=== PATIENT | female | born 1960 | race Hispanic/Latino ===

== ENCOUNTER 2017-01-18 07:10 | Emergency (ER) | payer SELFPAY ==
[2017-01-18 07:10] VITALS: BMI 35.5
[2017-01-18] MEDS ORDERED: Albuterol-Ipratrop 3 mg / 0.5 (3 ml) UD INH STA (07:33)
[2017-01-18] MEDS ORDERED: guaiFENesin 100 mg/5 ml Syrup UD PO STA (07:33)
[2017-01-18] MEDS ORDERED: guaiFENesin 100 mg/5 ml Syrup UD ONE (07:50)
[2017-01-18] MEDS ORDERED: Albuterol-Ipratrop 3 mg / 0.5 (3 ml) UD ONE (07:50)
--- NOTE | 2017-01-18 08:14 | ED PDOC ---
HPI: CCC, URI, Sore Throat Time Seen by Provider: 01/18/17 07:16 Chief Complaint (Nursing): Cough, Cold, Congestion Chief Complaint (Provider): Cough History Per: Patient History/Exam Limitations: no limitations Onset/Duration Of Symptoms: Days (x2) Current Symptoms Are (Timing): Still Present Sick Contacts (Context): Individual(s) At Work (hospital employee) Associated Symptoms: Fever, Cough Ear Symptoms: Bilateral: None Pain Scale Rating Of: 7 Additional Complaint(s): Kelley Contreras is a 56 year old female, with no past medical history, who presents to the emergency department complaining of cough associated with malaise and headache onset for 2 days. Patient reports chest wall pain with cough and states that she had fever this morning. She denies any hemoptysis, syncope, or edema. Patient is a hospital employee. No further medical complaints. PMD: None provided. Past Medical History Reviewed: Historical Data, Nursing Documentation, Vital Signs Vital Signs: Last Vital Signs Temp 100.4 F H 01/18/17 07:13 Pulse 121 H 01/18/17 07:13 Resp 22 01/18/17 07:13 BP 144/79 01/18/17 07:13 Pulse Ox 99 01/18/17 08:31 - Family History Family History: States: Unknown Family Hx - Social History Current smoker - smoking cessation education provided: No Alcohol: None Drugs: Denies - Allergies Allergies/Adverse Reactions: Allergies Allergy/AdvReac Type Severity Reaction Status Date / Time ciprofloxacin [From Cipro] Allergy RASH Verified 01/03/17 08:45 codeine Allergy RASH Verified 01/03/17 08:45 Review of Systems ROS Statement: Except As Marked, All Systems Reviewed And Found Negative Constitutional: Positive for: Fever, Malaise Cardiovascular: Positive for: Other (chest wall pain with cough). Negative for : Edema Respiratory: Positive for: Cough. Negative for: Hemoptysis Neurological: Positive for: Headache. Negative for: Other (syncope) Physical Exam - Reviewed Nursing Documentation Reviewed: Yes Vital Signs Reviewed: Yes - Physical Exam Appears: Positive for: Well, Non-toxic, No Acute Distress Head Exam: Positive for: ATRAUMATIC, NORMAL INSPECTION, NORMOCEPHALIC Skin: Positive for: Normal Color, Warm, Dry Eye Exam: Positive for: EOMI, Normal appearance, PERRL Neck: Positive for: Normal, Painless ROM, Supple Cardiovascular/Chest: Positive for: Regular Rate, Rhythm. Negative for: Murmur Respiratory: Negative for: Normal Breath Sounds (Coarse bilaterally), Respiratory Distress Gastrointestinal/Abdominal: Positive for: Normal Exam, Bowel Sounds, Soft. Negative for: Tenderness, Guarding, Rebound Back: Positive for: Normal Inspection. Negative for: L CVA Tenderness, R CVA Tenderness Extremity: Positive for: Normal ROM. Negative for: Pedal Edema, Deformity, Swelling Neurologic/Psych: Positive for: Alert, Oriented - Laboratory Results Result Diagrams: 01/18/17 08:10 01/18/17 08:10 - ECG O2 Sat by Pulse Oximetry: 99 (RA) Pulse Ox Interpretation: Normal Medical Decision Making Medical Decision Making: Initial Impression: cough Initial Plan: --Venous Blood Gas Shock Panel --Comp Metabolic Panel --CBC w/ differential --Chest two views (PA/LAT) [RAD] --Tylenol 650 mg PO --Duoneb 3 ml INH --Robitussin 100 mg PO --SOLU-medrol 125 mg IVP --Blood culture --Peak flow pre/post Tx --Influenza A B --reevaluation 0934 chest x-ray FINDINGS: LINES AND TUBES: None. LUNG AND PLEURA: The lungs are well inflated and clear. HEART AND MEDIASTINUM: The heart is not enlarged. The hilar and mediastinal contours are within normal limits. SKELETAL STRUCTURES: The bony structures are within normal limits for the patient's age. VISUALIZED UPPER ABDOMEN: Normal. OTHER FINDINGS: None. IMPRESSION: No active pulmonary disease. Scribe Attestation: Documented by Sahil Guerra, acting as a scribe for Josue Nowak MD Provider Scribe Attestation: All medical record entries made by the Scribe were at my direction and personally dictated by me. I have reviewed the chart and agree that the record accurately reflects my personal performance of the history, physical exam, medical decision making, and the department course for this patient. I have also personally directed, reviewed, and agree with the discharge instructions and disposition. Disposition - Disposition Forms: Zeb[employer] (Lithuanian)
[2017-01-18 08:23] LABS: BASO % 0.3 % (0.0-2.0); EOS # 0.1 K/uL (0.0-0.7); EOS % 1.8 % (0.0-4.0); HEMATOCRIT 40.6 % (34.0-47.0); LYMPH # 0.9 K/uL (1.0-4.3); LYMPH % 12.1 % (20.0-40.0); MEAN CELL VOLUME 88.1 fl (81.0-99.0); MEAN CORPUSCULAR HEMOGLOBIN 29.9 pg (27.0-31.0); MEAN PLATELET VOLUME 6.8 fl (7.2-11.7); MONO # 0.8 K/uL (0.0-0.8); MONO % 10.3 % (0.0-10.0); NEUT # 5.5 K/uL (1.8-7.0); NEUT % 75.5 % (50.0-75.0); NRBC % 0.2 % (0.0-0.0); WHITE BLOOD COUNT 7.3 K/uL (4.8-10.8)
[2017-01-18 08:42] LABS: ALB/GLOB RATIO 1.2 (1.0-2.1); ALKALINE PHOSPHATASE 114 U/L (38-126); ALT/SGPT 37 U/L (9-52); AST/SGOT 32 U/L (14-36); BILIRUBIN,TOTAL 0.4 mg/dl (0.2-1.3); BLOOD UREA NITROGEN 15 mg/dl (7-17); CALCIUM 9.2 mg/dL (8.4-10.2); CARBON DIOXIDE 26 mmol/L (22-30); CHLORIDE 104 mmol/L (98-107); GFR AFRICAN-AMERICAN > 60; GLUCOSE,RANDOM 102 mg/dL (65-105); POTASSIUM 3.8 MMOL/L (3.6-5.0); SODIUM 141 mmol/l (132-148)
[2017-01-18 08:55] LABS: VENOUS BLOOD GAS PCO2 44 mmHg (40-60)
--- NOTE | 2017-01-18 09:36 | RAD ---
HISTORY: COMPARISON: 05/11/2010 TECHNIQUE: Chest PA and lateral FINDINGS: LINES AND TUBES: None. LUNG AND PLEURA: The lungs are well inflated and clear. HEART AND MEDIASTINUM: The heart is not enlarged. The hilar and mediastinal contours are within normal limits. SKELETAL STRUCTURES: The bony structures are within normal limits for the patient's age. VISUALIZED UPPER ABDOMEN: Normal. OTHER FINDINGS: None. IMPRESSION: No active pulmonary disease.
[2017-01-18 11:33] VITALS: BP 111/78; PULSE 94; RESP 19; TEMP 99; O2SAT 98
== END 2017-01-18 11:43 | disposition home or self-care (01) ==
LOC: H.ER 07:10
DX: R05 Cough (principal); R50.9 Fever, unspecified
CPT/HCPCS: 71020; 80053; 82803; 85025; 87040; 87804; 96374; 99283; J2930

== ENCOUNTER 2017-11-22 05:53 | Day surgery (SDC) | payer OTHER ==
[2017-11-12 09:09] VITALS: BMI 35.2
[2017-11-13 08:52] VITALS: RESP 20
[2017-11-22] MEDS ORDERED: Bupivacaine 0.5% Inj(30mL) IJ ONE (06:48)
[2017-11-22] MEDS ORDERED: Lidocaine 1% Inj (20ml) IJ ONE (06:48)
--- NOTE | 2017-11-22 06:52 | CP.SDSHP ---
Same Day Surgery H & P - History Proposed Procedure: L eft foot Nadja Osteotomy with plantar plate repair, repair of 2nd digit hammer toe Pre-Op Diagnosis: HammerToe of 2nd digit with plantar plate tear - Previous Medical/Surgical History Pain: 4.Moderate Pain - Allergies Allergies: Allergies ciprofloxacin [From Cipro] Allergy (Verified 01/03/17 08:45) RASH codeine Allergy (Verified 01/03/17 08:45) RASH - Physical Exam Vital Signs: Vital Signs 11/22/17 11/22/17 06:29 06:32 Temperature 99.2 F Pulse Rate 83 83 Respiratory 20 Rate Blood Pressure 149/91 H O2 Sat by Pulse 100 Oximetry Mental Status: Alert & Oriented x3 Neuro: WNL - {Optional Preform as Required} Integument: WNL - Impression Pt. Evaluated Today:Candidate for Anesthesia & Procedure: Yes - Date & Time Date: 11/22/17 Time: 06:52 Short Stay Discharge - Short Stay Discharge Admitting Diagnosis/Reason for Visit: M20.41/M25.74/M77.571 Disposition: HOME/ ROUTINE Referrals: FAMILY PROVIDER,NO [Primary Care Provider] - Additional Instructions (Diet, Activity): -Patient in good/stable condition for discharge home -Pt to resume medications per medical reconciliation -Resume regular diet Please keep dressing clean, dry, & intact to surgical site -Use plastic bag over bandage for showering -Wear post op shoe at all times when ambulating -Call clinic if you see signs of infection (redness, swelling, malodor) -Please make an appointment to see Dr. Cruz in office/clinic within 1 week for post-op check Progress Note/Discharge Note with Instructions: - Patient evaluated bedside in recovery s/p surgical procedure. - After surgical procedure patient in NAD - (+) Void, (+) Appetite - Capillary refill time <3s and NVSI intact. - Patient denies complaints at this time - Post operative instructions and plan of care explained to patient at length. - Pt. acknowledges understanding. - Patient stable for DC per podiatric surgery
[2017-11-22] MEDS ORDERED: ceFAZolin IV 1 gm in Dextrose 1 GM/50 ML BAG IVPB ONE (07:00)
[2017-11-22] MEDS ORDERED: Sodium Chloride 0.9% 1,000 ML IV SCH (07:00)
[2017-11-22] MEDS ORDERED: Midazolam 2 MG/2 ML VIAL ONE (07:08)
[2017-11-22] MEDS ORDERED: Propofol 10 mg/ml Inj (20 ML) ONE ×2 (07:08→11:00)
--- NOTE | 2017-11-22 07:14 | CP.PCM.PN ---
Subjective - Date & Time of Evaluation Date of Evaluation: 11/22/17 Time of Evaluation: 06:52 - Subjective Subjective: Podiatry progress note for Dr. Cruz 57 y/o female with no significant past medical history was seen and evaluated at bedside in [facility] for surgery to her left foot. Patient states she came to the clinic due to complaints of pain to her 2nd digit at the PIPJ and plantarly, worsened with ambulation. Patient states she last ate or drank at 10 PM last night. Patient denies any reactions to sugeries in the past. Patient denies any F/N/V/SOB/chills. PMHx: denies PSHx: C-sections, Tonsillectomy, Hemangioma removal Medications: Naprosyn for left foot pain Allergies: Codeine, Ciprofloxacin, Social History: drinks occasionally, denies tobacco and drug use Objective - Vital Signs/Intake and Output Vital Signs (last 24 hours): Temp Pulse Resp BP Pulse Ox 99.2 F 83 20 149/91 H 100 11/22/17 06:29 11/22/17 06:32 11/22/17 06:29 11/22/17 06:29 11/22/17 06:29 - Medications Medications: Current Medications Bupivacaine HCl (Marcaine 0.5%) 20 ml IJ ONCE ONE Stop: 11/22/17 06:49 Cefazolin Sodium 1 gm/ Sodium (Chloride) 100 mls @ 100 mls/hr IVPB ONCE ONE PRN Reason: Protocol Stop: 11/22/17 07:47 Sodium Chloride (Sodium Chloride 0.9%) 1,000 mls @ 20 mls/hr IV .Q24H [facility] Stop: 11/23/17 06:49 Lidocaine HCl (Lidocaine 1% (20ml)) 20 ml IJ ONCE ONE Stop: 11/22/17 06:49 - Constitutional Appears: Well, Non-toxic, No Acute Distress - Head Exam Head Exam: ATRAUMATIC, NORMOCEPHALIC - Extremities Exam Additional comments: Vasc: DP-2/4 b/l, PT-1/4 b/l, CFT < 3 seconds x10, TG warm to cool, pedal hair present, no edema, no erythema, no varacosities. Derm: Hyperkeratotic lesion dorsal PIPJ on second digit b/l, hyperkeratotic lesion submet 2 b/l, No IDM, no open lesions, no clinical signs of infection. Neuro: Protective sensation intact 4/4 via [place] examination b/l. Ortho: HAV b/l, hammered second digits b/l (L>R)- left is rigid and right is semi-rigid base on Kellikian push up test.,Pain on palpation submet 2 on the left and near the head of the second met b/l. - Neurological Exam Neurological Exam: Alert, Awake, Oriented x3 - Psychiatric Exam Psychiatric exam: Normal Affect, Normal Mood Assessment and Plan - Assessment and Plan (Free Text) Assessment: 57 yo female seen and evaluated in [facility] for left foot hammertoe and plantar plate repair. Plan: Pt was seen and examined in [facility] Pt NPO status was confirmed All pre-op testing and clearance in chart Pt has exhausted all conservative treatment at this time and is opting for surgical intervention Pt was explained procedure and post-operative course All pt's questions were answered to satisfaction No guarantees were made Pt understands all risks, benefits and complications of procedure Pt will follow-up with Dr. Cruz in podiatry clinic within 1 week of surgery
[2017-11-22] MEDS ORDERED: ceFAZolin IV 2 gm in Dextrose 2 GM/50 ML BAG IVPB ONE (07:41)
[2017-11-22] MEDS ORDERED: Bupivacaine HCl 0.5% PF (30 ml) Inj ONE (07:41)
[2017-11-22] MEDS ORDERED: Lidocaine 2% MPF (5 ml) Inj ONE (07:41)
[2017-11-22] MEDS ORDERED: Lactated Ringer's 1,000 ML IV ONE ×2 (10:00→12:50)
[2017-11-22] MEDS ORDERED: Rocuronium 10 mg/ml (5 ml) ONE (11:00)
[2017-11-22] MEDS ORDERED: Succinylcholine 200 mg/10 ml Inj IV ONE (11:00)
--- NOTE | 2017-11-22 13:14 | PCM.SURG1 ---
Surgeon's Initial Post Op Note - Surgeon's Notes Surgeon: Dr. Cruz, DPM [employer] Machine Operator: Dr. Elly Villa PGY3, Dr. Lindsay Jade PGY3 Type of Anesthesia: IV Sedation, Local Anesthesia Administered By: Dr. Hamilton Pre-Operative Diagnosis: Left foot 2nd digit hammertoe with plantar plate rupture Operative Findings: see dictation. I: 20 cc 1:1 mixture of 2% Lidocaine plain and 0.5% Marcaine plain. M: 4-0 Vicryl, 4-0 monocryl, 4-0 Nylon, 2-0 Vicryl, Arthrex Tigerwire and Fibertape Post-Operative Diagnosis: same Operation Performed: Left foot 2nd digit arthroplasty and resection of the 2nd metatarsal head, repair of the plantar plate Specimen/Specimens Removed: none Estimated Blood Loss: EBL {In ML}: 1 Blood Products Given: N/A Drains Used: No Drains Post-Op Condition: Good Date of Surgery/Procedure: 11/22/17 Time of Surgery/Procedure: 13:15
[2017-11-22] MEDS ORDERED: HYDROmorphone 0.5 mg/0.5 ml ISec IVP PRN (13:15)
[2017-11-22 14:17] VITALS: BP 134/77; PULSE 74; TEMP 98.1; O2SAT 99
--- NOTE | 2017-11-22 14:23 | RAD ---
Date of service: 11/22/2017 PROCEDURE: Left Foot Radiographs. HISTORY: left foot surgery COMPARISON: 10/21/2017 FINDINGS: BONES: Postoperative findings, prior osteotomy 2nd metatarsal phalangeal junction and proximal interphalangeal joint. JOINTS: Hammertoe deformities remain unaffected digits. SOFT TISSUES: Postoperative soft tissue swelling identified best seen on the lateral view. OTHER FINDINGS: None. IMPRESSION: Satisfactory postoperative status.
--- NOTE | 2017-11-27 08:25 | OP ---
PROCEDURE DATE: 11/22/2017 SURGEON: Lindsay Cruz DPM STAND IN: Elly Villa, PGY-3, Dr. Salazar, PGY-3. ANESTHESIOLOGIST: Dr. Hamilton. ANESTHESIA: IV sedation with local. PREOPERATIVE DIAGNOSIS: Left foot second digit hammertoe deformity with rupture of plantar plate. POSTOPERATIVE DIAGNOSIS: Left foot second digit hammertoe deformity with rupture of plantar plate. PROCEDURES PERFORMED: 1. Left foot arthroplasty of proximal interphalangeal joint of the second digit. 2. Left foot partial second metatarsal head resection. 3. Left foot surgical repair of second metatarsophalangeal joint plantar plate rupture. INDICATIONS: The patient is a 57-year-old female with the above mentioned diagnosis. The patient has exhausted multiple forms of conservative treatment at this time and now request surgical intervention. The patient signed the consent after careful explanation of risks, benefits, complications and alternatives for surgical procedure. No guarantees were given nor implied. The n.p.o. status was confirmed prior to bringing the patient into the operating room. PREPARATION: The patient was brought into the operating room and placed on the operating room table in a supine position. A time-out was performed for identification of the correct patient and procedure. A well-padded pneumatic ankle tourniquet was placed to the patient's left ankle. After induction of IV sedation, the patient received a total of 20 mL of a 1:1 mixture of 0.5% Marcaine plain and 2% lidocaine plain in a local block type fashion to the left foot. Once the local anesthesia was achieved, the left foot was then prepped and draped in normal sterile manner. The tourniquet was inflated to 250 mmHg and the procedure began. DESCRIPTION OF PROCEDURE: 1. Left foot second digit proximal interphalangeal joint arthroplasty: Attention was directed to the second digit of the left foot where a 2 cm semi elliptical incision was made over the dorsum of the proximal interphalangeal joint. Sharp dissection was carried down through deep tissue with care being taken to identify and retract all vital neurovascular structures. All bleeders were cauterized and ligated as necessary. At this time, a transverse tenotomy and capsulotomy was performed to the proximal interphalangeal joint and the head of the proximal phalanx was then freed of its capsular and ligamentous attachments. Next, utilizing the sagittal bone saw, the head of the proximal phalanx was resected and passed from the operative field. Correction of the deformity was assessed at this time and noted to be excellent. The wound was then flushed with copious amounts of normal sterile saline and the subcutaneous tissue was reapproximated with 4-0 Vicryl and the subcuticular layer and the skin was reapproximated with 4-0 Monocryl and 4-0 nylon. 2. Left foot second metatarsal head resection: Attention was then drawn to the second metatarsophalangeal joint where a 3 cm curved, semi circular incision was created at the level of the second metatarsophalangeal joint of the left foot. It was to avoid postoperative contracture overlying the second metatarsophalangeal joint and for minimal scar formation clinically. The incision was then carried down through the deeper plane with care being taken to identify and retract all vital and neurovascular structures. All bleeders were cauterized and ligated as necessary. The incision was then deepened down to the level of the long extensor tendon and the long extensor tendon was then identified and retracted laterally. Attention was then drawn to the capsular and periosteal tissue. A sharp periosteal and capsular incision was created being careful not to score the articular cartilage of the second metatarsal head. Periosteal tissue was reflected from this area to expose the head and neck of the second metatarsophalangeal joint. Using a Ruiz elevator, the plantar capsule was released off the head of the second metatarsal. Upon this maneuver, the articular cartilage of the head was kept nonviable. With the use of a sagittal saw, the distal aspect of the metatarsal head was resected and passed off the operative field. The incision site was then copiously irrigated with sterile normal saline. 3. Left foot repair of the second metatarsophalangeal joint and plantar plate rupture: Next, via the same incision at the level of the second metatarsophalangeal joint, the medial and collateral ligaments were then released off of the base of the proximal phalanx using a #15 blade. A 0.062 inch K-wire was then driven from dorsal to plantar, at the base of the proximal phalanx and at the neck of the second metatarsal. Next, a distractor was placed over the K-wire to allow for visualization and exposure of the plantar plate. Upon inspection of the plantar plate apparatus, it was noted to be free and completely ruptured. Using a #15 blade, the remaining plantar plate was transected off of the base of the proximal phalanx with care being taken to avoid the flexor tendon. Next, utilizing the Arthrex ____0_ FiberWire was passed on the medial aspect of the plantar plate with the pigtail technique and SutureLasso and another 0 FiberWire was passed to the lateral aspect of the plantar plate with the same SutureLasso pigtail technique. Next, two drill holes using 0.062 inch K-wire was drilled into the base of the proximal phalanx, one medial and one lateral to allow for the FiberWire to pass through. Using the SutureLasso, each end of FiberWire was passed through the bone tunnel and the proximal phalanx. Using a _suture lasso____, the FiberWire was then sent down at the dorsal aspect of the proximal phalanx by holding the digit in a plantar flexed position against the metatarsal head. The correction of the deformity was assessed at this time and noted to be excellent. The incision site was then copiously irrigated with sterile normal saline. Subcutaneous tissue was reapproximated with 3-0 and 4-0 Vicryl and the subcuticular tissue was reapproximated with 4-0 Monocryl and the skin was reapproximated with 4-0 Nylon. Postoperative dressing included Steri-Strips, Adaptic, 4x4, gauze, Cata, and Andrzej. POSTOPERATIVE CONDITION: The patient tolerated the anesthesia and the procedure well and was escorted to the recovery room with vital signs stable and neurovascular status intact to the left lower extremity. The patient will follow up with Dr. Cruz in her office on an outpatient basis. Elly Villa DPM Lindsay Cruz DPM [facility]
== END 2017-11-22 16:00 | disposition home or self-care (01) ==
LOC: H.OPSURG 05:53
PROVIDERS: ATTEND Podiatrist Primary Podiatric Medicine
DX: M20.42 Other hammer toe(s) (acquired), left foot (principal); E66.9 Obesity, unspecified
CPT/HCPCS: 28173; 28285; 73630; 97116; 97161; C1713; G8978; G8979; G8980; J0330; J0690; J2001; J2250; J2704; J3010; J7030; J7120

== ENCOUNTER 2018-02-02 13:32 | Emergency (ER) | payer OTHER ==
[2018-02-02 13:33] VITALS: BMI 35.2
[2018-02-02 13:39] VITALS: BP 149/86; RESP 18; TEMP 97.8; O2SAT 99
[2018-02-02 13:53] VITALS: PULSE 78
--- NOTE | 2018-02-02 14:17 | ED PDOC ---
HPI: Skin/Bite Injury Time Seen by Provider: 02/02/18 13:50 Chief Complaint (Nursing): Abnormal Skin Integrity Chief Complaint (Provider): Abnormal Skin Integrity History Per: Patient History/Exam Limitations: no limitations Onset/Duration Of Symptoms: Days (x2) Current Symptoms Are (Timing): Still Present Additional Complaint(s): 57 year old female, [employer] employee with no significant pmHx, presents to ED with a complaint of left-sided facial swelling with minimal discomfort since yesterday. She denies any pain to affected area, barak toothache, fever, chills, sore throat, difficulty swallowing, or ear pain bilaterally. Patient reports taking Naproxen this morning with decrease in swelling today but continues to have persistent discomfort. Patient went to work but referred to ED for further evaluation by coworkers. She additionally states that she has not been evaluated by a dentist in 4 years. PCP: none provided Past Medical History Reviewed: Historical Data, Nursing Documentation, Vital Signs Vital Signs: Last Vital Signs Temp 97.8 F 02/02/18 13:36 Pulse 78 02/02/18 13:36 Resp 18 02/02/18 13:36 BP 149/86 02/02/18 13:36 Pulse Ox 99 02/02/18 13:36 - Medical History PMH: Arthritis (hands) Denies: Chronic Kidney Disease - Family History Family History: States: Unknown Family Hx - Home Medications Home Medications: Ambulatory Orders Medication Instructions Recorded Naproxen 500 mg PO BID PRN 11/22/17 traMADol [Ultram] 50 mg PO Q4 PRN 11/22/17 Penicillin VK [Penicillin VK Tab] 500 mg PO Q6 7 Days tab 02/02/18 - Allergies Allergies/Adverse Reactions: Allergies Allergy/AdvReac Type Severity Reaction Status Date / Time ciprofloxacin [From Cipro] Allergy RASH Verified 01/03/17 08:45 codeine Allergy RASH Verified 01/03/17 08:45 Review of Systems ROS Statement: Except As Marked, All Systems Reviewed And Found Negative Constitutional: Negative for: Fever, Chills ENT: Positive for: Mouth Swelling (left-sided with minimal discomfort). Negative for: Ear Pain (bilaterally), Mouth Pain (or barak toothache), Throat Pain (or difficulty swallowing) Physical Exam - Reviewed Nursing Documentation Reviewed: Yes Vital Signs Reviewed: Yes - Physical Exam Appears: Positive for: No Acute Distress Head Exam: Positive for: ATRAUMATIC, NORMAL INSPECTION, NORMOCEPHALIC Skin: Positive for: Normal Color Eye Exam: Positive for: Normal appearance ENT: Positive for: TM Is/Are (occluded bilaterally by cerumen), Other (edema over left mandibular area (-)erythema, (-)ecchymosis, or (-)drainage). Negative for: Pharyngeal Erythema, Tonsillar Exudate, Tonsillar Swelling (or evidence of ulceration/left-sided erythema of buccal mucosa of mandible) Neck: Positive for: Normal, Supple Cardiovascular/Chest: Positive for: Regular Rate, Rhythm Respiratory: Positive for: Normal Breath Sounds. Negative for: Respiratory Distress Neurologic/Psych: Positive for: Alert, Oriented - ECG O2 Sat by Pulse Oximetry: 99 (RA) Pulse Ox Interpretation: Normal Medical Decision Making Medical Decision Making: Time: 1409 Initial Plan: * Penicillin VK 500mg PO Scribe Attestation: Documented by Kiarra Sofia, acting as a scribe for RACHEL Lauren. Provider Scribe Attestation: All medical record entries made by the Scribe were at my direction and personally dictated by me. I have reviewed the chart and agree that the record accurately reflects my personal performance of the history, physical exam, medical decision making, and the department course for this patient. I have also personally directed, reviewed, and agree with the discharge instructions and disposition. Disposition - Clinical Impression Clinical Impression: Dental abscess - Patient ED Disposition Is Patient to be Admitted: No Counseled Patient/Family Regarding: Diagnosis, Need For Followup, Rx Given - Disposition Disposition: Routine/Home Disposition Time: 14:31 Condition: STABLE Additional Instructions: F/u with dentist as soon as possible. Continue antibiotics as prescribed. Naproxen for pain. Prescriptions: Penicillin VK [Penicillin VK Tab] 500 mg PO Q6 7 Days tab Instructions: Tooth Abscess (DC), Dental Pain (DC) Forms: [facility] (Sami), [facility] ED School/Work Excuse Print Language: GIBRALTARIAN
== END 2018-02-02 14:57 | disposition home or self-care (01) ==
LOC: H.ER 13:32
DX: K04.7 Periapical abscess without sinus (principal)